=== PATIENT | male | born 1960 | race Caucasian/White ===

== ENCOUNTER 2019-03-26 10:01 | Day surgery (SDC) | payer OTHER ==
[2019-03-25 15:31] VITALS: BMI 26.6
[2019-03-26] MEDS ORDERED: DEXAMETHASONE SOD PHOSPHATE 4 MG/1 ML VIAL ONE (10:51)
[2019-03-26] MEDS ORDERED: ceFAZolin SODIUM 1 GM VIAL ONE (10:51)
[2019-03-26] MEDS ORDERED: ROCURONIUM BROMIDE 50 MG/5 ML SYRINGE ONE ×2 (10:51→13:24)
[2019-03-26] MEDS ORDERED: SODIUM CHLORIDE 0.9% P/F 10 ML VIAL IJ ONE ×2 (10:51→12:09)
[2019-03-26] MEDS ORDERED: MIDAZOLAM HCL 2 MG/2 ML SINGLE DOSE VIAL ONE ×2 (10:52)
[2019-03-26] MEDS ORDERED: PROPOFOL 20 ML ONE (10:52)
[2019-03-26] MEDS ORDERED: BUPIVACAINE LIPOSOME/PF (EXPAREL) 266 MG/20 ML VIAL ONE (11:04)
[2019-03-26] MEDS ORDERED: BUPIVACAINE HCL/PF 0.25% (2.5MG/ML) 10 ML VIAL ONE (11:04)
[2019-03-26] MEDS ORDERED: LIDOCAINE HCL/PF 2% SDV 5ML VIAL ONE (12:09)
[2019-03-26] MEDS ORDERED: ONDANSETRON 4 MG/2 ML VIAL IVPUSH PRN (12:32)
[2019-03-26] MEDS ORDERED: oxyCODONE HCL 5 MG TABLET PO PRN ×2 (12:32)
--- NOTE | 2019-03-26 12:41 | HP ---
History & Physical Update - History History: No Change - Physical Physical: No Change - Assessment Assessment: No Change - Plan Plan: No Change
[2019-03-26] MEDS ORDERED: LACTATED RINGERS SOLUTION 1,000 ML IV SCH (12:45)
[2019-03-26] MEDS ORDERED: ceFAZolin SODIUM 1 GM VIAL IVPB ONE (13:05)
[2019-03-26] MEDS ORDERED: KETOROLAC TROMETHAMINE 30 MG/1 ML VIAL ONE (13:50)
[2019-03-26] MEDS ORDERED: NEOSTIGMINE METHYLSULFATE 0.5 MG/ML - 10 ML MDV ONE (14:13)
[2019-03-26] MEDS ORDERED: GLYCOPYRROLATE 0.2 MG/1 ML VIAL ONE (14:13)
--- NOTE | 2019-03-26 14:32 | OP ---
Operative Note - Note: Operative Date: 03/26/19 Pre-Operative Diagnosis: RIH Operation: Robotic RIH repair with mesh Implants: 15 x 10 cm Progrip mesh Surgeon: Slick Galeana Bursar: Harpal Valentine Anesthesia: General Estimated Blood Loss (mls): 3 Operative Report Dictated: Yes
--- NOTE | 2019-03-26 14:45 | OP ---
DATE OF OPERATION: 03/26/2019 PROCEDURE: Robotic-assisted laparoscopic right inguinal hernia repair with mesh. PREOPERATIVE DIAGNOSIS: Right inguinal hernia. POSTOPERATIVE DIAGNOSIS: Direct right inguinal hernia. SURGEON: Slick Galeana MD SENIOR GENETIC COUNSELOR: VALENTINO Temple ANESTHESIA: General endotracheal. FINDINGS AND PROCEDURE: This is a 59-year-old male who presents with a painful right inguinal bulge. This was reducible on physical exam. Patient advised elective right inguinal hernia repair, and consent was obtained after discussing the risks, benefits, and alternatives to the procedure. Patient was brought to the operating room and placed in supine position with both arms tucked to the side. General endotracheal anesthesia was administered. The abdomen was prepped and draped in the usual sterile fashion. Using 0.5% Marcaine, local anesthesia was administered. Patient had a TAP block prior. Using scalpel blade No. 15, an 8-mm incision was made at the supraumbilical incision to the right of midline. The peritoneal cavity was accessed using the Veress needle technique, and pneumoperitoneum was established. An 8-mm port was inserted through the supraumbilical incision followed by insertion of the 3D laparoscope. The peritoneal cavity was carefully inspected and was noted to be free of inadvertent injury. Two 8-mm ports were inserted 8 cm away from each side of the midline port under direct vision. Patient was placed in steep Trendelenburg position. The target organ was set, and the robotic arms were docked. A fenestrated bipolar forceps was inserted at the left-sided port, and the EndoWrist Miguel Angel were inserted at the left-sided port connected to monopolar cautery. The undersigned then scrubbed out to commence the console part of the procedure. A preperitoneal pocket was created by incising the parietal peritoneum at the level of the anterior superior iliac spine using the laparoscopic miguel angel connected to monopolar cautery. Blunt and sharp dissection using the fenestrated bipolar disorder and EndoWrist Miguel Angel was done until the direct inguinal hernia was completely reduced. The incision was carried toward the underside of the symphysis pubis medially and laterally towards the anterior superior iliac spine. The peritoneal reflection was also dissected away from the spermatic cord structures as far as about 7 cm from the internal ring. After the dissection was deemed satisfactory, 10 x 15-cm ProGrip mesh was deployed to cover the direct hernia, the internal ring and the femoral canal medially. After deployment was deemed satisfactory, the peritoneal pocket was closed with a continuous V-Lock absorbable 2-0 suture. The peritoneal cavity was again carefully inspected and was noted to be free of active bleeding . The EndoWrist instruments were removed, and the robotic arms were undocked. The pneumoperitoneum was evacuated, and the ports were removed. The wounds were closed with subcuticular Biosyn 4-0 sutures reinforced with Dermabond. Patient was successfully extubated and transferred to the post anesthesia care unit in satisfactory condition. Estimated blood loss was about 3 mL. Wound class clean. The patient received 2 g of Ancef prior to the start of the procedure. Ramon [id number]
[2019-03-26 19:48] VITALS: TEMP 97.8
[2019-03-26 19:52] VITALS: BP 120/66; PULSE 61
--- NOTE | 2019-03-29 14:55 | SURG ---
Surgery Honing Machine Operator Tool Note Honing Machine Operator Tool: Harpal Valentine PA-C Date of Service: 03/26/19 Diagnosis: Right (Incarcerated; direct) inguinal hernia Procedure: Robotic right inguinal hernia repair with mesh I was present for the entirety of the operative procedure. For further detail, please refer to operative report. Visit type - Case Type Case Type: Scheduled - New patient This patient is new to me today: Yes Date on this admission: 03/29/19
== END 2019-03-26 18:45 | disposition home or self-care (01) ==
LOC: JASU-SURG 10:01
PROVIDERS: ATTEND Surgery
PROC: 8E0W4CZ Robotic Assisted Procedure of Trunk Region, Percutaneous Endoscopic Approach (ICD-10-PCS; 2019-03-26)
PROC: 0YU54JZ Supplement Right Inguinal Region with Synthetic Substitute, Percutaneous Endoscopic Approach (ICD-10-PCS; principal; 2019-03-26 13:22)
DX: K40.90 Unilateral inguinal hernia, without obstruction or gangrene, not specified as recurrent (principal)
CPT/HCPCS: 49650; S2900; 86850; 86900; 86901; 94760